=== PATIENT | male | born 1965 | race Caucasian/White ===

== ENCOUNTER 2018-10-12 21:07 | Emergency (ER) | payer OTHER ==
[~2018-10-12] VITALS: Ht 177.8 cm; Wt 108.9 kg
[2018-10-12] MEDS ORDERED: XANAX 0.25 MG0.25 MG PO (22:40)
[2018-10-12 22:57] VITALS: BP 127/59
== END 2018-10-12 22:59 | disposition home or self-care (01) ==
LOC: M.ERS 21:07
DX: F41.9 Anxiety disorder, unspecified (principal)